=== PATIENT | male | born 1990 | race African-American/Black ===

== ENCOUNTER 2017-02-06 13:07 | Emergency (ER) | payer OTHER ==
[~2017-02-06] VITALS: Ht 182.9 cm; Wt 104.5 kg
[2017-02-06 13:29] VITALS: BP 134/78; PULSE 117; RESP 20; O2SAT 96
[2017-02-06] MEDS ORDERED: 0.9% Sodium Chloride 1,000 ML IV ONE (17:07)
[2017-02-06] MEDS ORDERED: Ondansetron 2 mg/mL 2 mL Inj IVPUSH ONE (17:10)
--- NOTE | 2017-02-06 17:12 | ED.REPORT ---
HPI-Dental/Mouth Prob Date of Service Feb 06, 2017 ED Provider: Emanuel Snyder PA-C Jerad is a otherwise healthy 26-year-old male with a chief complaint of dental pain. Reports pain in his lower left molar. He was seen and assessed for this at the dental urgent care approximately one month ago and diagnosed with impacted third molar. 2 weeks ago the pain increased, and the patient suspects a new fracture in the tooth. Over the last several days the patient's pain has been increasing, he also complains of chills, congestion, cough, nausea, diarrhea and swollen lymph nodes. Reports that he is unable to eat or drink and has been sleeping excessively. Denies vomiting, abdominal pain, measured fever. Patient is awaiting surgery to treat impacted molar. Nursing Notes Stated Complaint: POSSIBLE TOOTH INFECTION Chief Complaint: Dental Nursing Notes Reviewed: Yes Allergies: Coded Allergies: No Known Allergies (Unverified , 02/06/17) Scheduled Amoxicillin/Clav K 875-125 mg (Augmentin 875-125 mg) 1 Each Tablet 1 TABLET PO BID Ondansetron ODT (Ondansetron ODT) 4 Mg Tab.rapdis 4-8 MG PO TID Scheduled PRN oxyCODONE (oxyCODONE) 5 Mg Capsule 5 MG PO Q4H PRN PRN For Pain General Time Seen by MD: 16:50 Chief Complaint Tooth pain Past Medical History Past Medical History Denies Review of Systems Review of Systems Note: Negative unless stated otherwise in history of present illness Physical Exam General: Well appearing, well developed, well nourished, no acute distress. Head: Atraumatic, normocephalic. No mastoid tenderness. Eyes: No scleral icterus or injection. No discharge. PERRL. Vision grossly intact. Ears: Pinna and tragus nontender with manipulation. External auditory canal patent, atraumatic and without discharge. Tympanic membrane vela, shiny and translucent without fluid, bulging, retraction or perforation. Hearing grossly intact. Nose: Symmetrical, nares patent without discharge. No frontal or maxillary sinus tenderness. Mouth/pharynx: Multiple caries. Apparent fracture in the left third molar. No obvious abscess, redness, swelling, discharge. Mucus membranes moist. Tonsils 2 + and symmetrical, uvula midline. Pharynx noninjected, no cobblestoning or discharge. Voice clear. Neck: No tenderness or lymphadenopathy. Trachea midline. Respiratory: Regular rate and rhythm. Breath sounds present, clear to auscultation and equal bilaterally. No respiratory distress. No increased work of breathing, speaks in complete sentences. Cardiovascular: Tachycardic approximately 112 with regular rhythm, without murmur, gallop or rub. No pedal edema. Gastrointestinal: Abdomen flat and non-tender without guarding or rebound. Bowel sounds normoactive. Skin: Warm and dry. Neurological: Grossly nonfocal. Psychological: Alert and oriented. Speech appropriate, linear and logical. Behavior appropriate. Initial Vital Signs Vital Signs (First) Date Time Temp Pulse Resp B/P Pulse Ox O2 Delivery O2 Flow Rate FiO2 02/06/17 13:29 37.1 117 20 134/78 96 Room Air Initial VS: Reviewed, Vital signs abnormal (tachycardic) Interpretation & Diagnostics Lab Results Interpretation Result Diagram: 02/06/17 1750 02/06/17 1750 Test 02/06/17 17:50 02/06/17 17:53 White Blood Count 9.4th/mm3 (3.8-10.1) Red Blood Count 5.61mil/mm3 (4.40-5.80) Hemoglobin 14.9g/dL (13.8-17.2) Hematocrit 45.3% (41.0-50.0) Mean Corpuscular Volume 80.7fL (81-100) Mean Corpuscular Hemoglobin 26.6pg (27.0-35.0) Mean Corpuscular Hemoglobin Concent 32.9% (32.0-37.0) Red Cell Distribution Width 14.8% (12.3-15.4) Platelet Count 366bil/L (150-400) Neutrophils (%) (Auto) 67.6% (40-74) Lymphocytes (%) (Auto) 21.5% (14-46) Monocytes (%) (Auto) 8.4% (4-12) Eosinophils (%) (Auto) 2.1% (0-5) Basophils (%) (Auto) 0.2% (0-3) Sodium Level 137mEq/L (134-144) Potassium Level 4.0mEq/L (3.5-5.2) Chloride Level 100mEq/L (97-108) Carbon Dioxide Level 23mmol/L (18-29) Blood Urea Nitrogen 12mg/dL (6-20) Creatinine 0.91mg/dL (0.76-1.27) Estimat Glomerular Filtration Rate 105mL/min (>59) Glucose Level 96mg/dL (60-99) Calcium Level 9.2mg/dL (8.5-10.1) Total Bilirubin 0.3mg/dL (0.0-1.2) Aspartate Amino Transf (AST/SGOT) 22U/L (0-50) Alanine Aminotransferase (ALT/SGPT) 47U/L (0-44) Alkaline Phosphatase 98U/L (25-150) Total Protein 7.8g/dL (6.4-8.4) Albumin 4.8g/dL (3.4-5.0) Hold [place] Top Tube Received (Received) Re-Eval/Medical Decision Med Decision/Clinical Course Noted tachycardia, Otherwise healthy 26-year-old male presents with left lower dental pain. He started then seen at dental urgent care, making arrangements for surgery. He thinks he fractured the tooth 2 weeks ago and the pain has not been increasing since then. Denies symptoms of systemic infection. Physical examination reveals apparently fractured third molar on the left mandible. Patient is tachycardic at approximately 112. CBC, CMP are reassuring with no leukocytosis. Treated with ketorolac, acetaminophen, 1 L normal saline and ondansetron. On reassessment he is significant only improved , with nausea resolved and pain controlled. He still remained somewhat tachycardic at 104. At this point I do not suspect sepsis however is more likely to be dehydration due to his reduced intake over the last several days. I offered the option of either receiving a second liter of IV normal saline or discharging home with instructions for oral rehydration. The patient states he prefers discharge to home. Discussed the case with , who met with and examined the patient. He agrees that the patient is safe and stable for discharge. Discharged with prescription for amoxicillin, ondansetron. Instructions for [id number] analgesia and small amount of oxycodone to supplement with precautions. Provided primary care follow-up instructions as well as emergency return precautions. Patient understands and agrees with plan. Discharge & Departure Primary Impression: Toothache Disposition: Home Discharge Condition All VS Reviewed: Yes Condition: Stable Additional Instructions: Evaluation for dental pain in the emergency department. While we were initially concerned that you may have a systemic infection going on, blood work was reassuring on this count. He responded well to 1 L of normal saline, and his heart rate came down significantly. You appear to have a fractured tooth in your left lower jaw. While it is not obviously infected I believe it is reasonable to treat with penicillin. This is likely to reduce the swelling in your lymph nodes as well. The pain is best treated with 800 mg of ibuprofen (Advil, Motrin) every 6 hours , or 1000 mg of acetaminophen (Tylenol) every 6 hours. These drugs can be taken at the same time for more severe pain. I will give a prescription for ondansetron (Zofran) to help with nausea. Sure to drink plenty of fluids. I typically recommend either apple juice or Gatorade cut 50-50 with water. Drink small amounts throughout the day. Follow-up with your dentist as planned. Return to the emergency department for any new or worsening symptoms including fever, increasing pain, swelling, discharge, difficulty swallowing or breathing. Referrals: Nimco Medina DO (PCP) EDSupervising Provider for APC: Harlan Quan MD Attending Statement No signs of a periapical abscess. No stridor trismus or drooling. No signs of deep space infection. I recommend , analgesia and dental referral. copies to: Nimco Medina Seth PA-C Feb 06, 2017 17:12 Mesfin Tamez DO Feb 08, 2017 11:58
[2017-02-06 17:58] LABS: BASOPHILS % (AUTO) 0.2 % (0-3); EOSINOPHILS % (AUTO) 2.1 % (0-5); MONOCYTES % (AUTO) 8.4 % (4-12); Mean Corpuscular Hemoglobin 26.6 pg (27.0-35.0); Mean Corpuscular Volume 80.7 fL (81-100); NEUTROPHILS % (AUTO) 67.6 % (40-74); Platelet Count 366 bil/L (150-400)
[2017-02-06 18:37] VITALS: BP 130/83; PULSE 104; RESP 22; O2SAT 98
[2017-02-06] MEDS ORDERED: ONDA4TAB12 PO (19:35)
[2017-02-06] MEDS ORDERED: PENI500T PO (19:35)
[2017-02-06] MEDS ORDERED: AMOX-366 PO (19:39)
[2017-02-06] MEDS ORDERED: OXYC5CAP4 PO (19:41)
[2017-02-06 19:48] VITALS: BP 116/76; PULSE 103; RESP 20; O2SAT 96
== END 2017-02-06 19:48 | disposition home or self-care (01) ==
LOC: SED 13:07
DX: K08.89 Other specified disorders of teeth and supporting structures (principal); R09.81 Nasal congestion; R05 Cough; R11.0 Nausea; R19.7 Diarrhea, unspecified; R59.1 Generalized enlarged lymph nodes; R00.0 Tachycardia, unspecified
CPT/HCPCS: 36415; 80053; 85025; 96361; 96374; 96375; 99284; J1885; J2405; J7030